=== PATIENT | male | born 1940 | race Caucasian/White ===

== ENCOUNTER 2016-11-26 16:24 | Emergency (ER) | payer MEDICARE ==
[2016-11-26 16:40] VITALS: BP 127/63
--- NOTE | 2016-11-26 17:39 | RAD ---
Indication: Fall. On aspirin. History of ITP. Assess for subdural hematoma. Comparison: August 07, 2016 Technique: Noncontrast CT vertex of skull through foramen magnum. Report: Previous small bilateral frontal craniotomies. Minimal subjacent chronic anterior dural thickening. Mild prominence of the cerebral sulci and cerebellar fissures. Proportional mild prominence of the ventricles. Unremarkable basal cisterns. Negative for wolff matter white matter obscuration, intra or extra-axial hemorrhage, or mass effect. Unremarkable orbital contents. Negative for calvarial or skull base fracture. Clear visualized paranasal sinuses and mastoid air spaces. Negative for scalp hematoma. IMPRESSION: 1. No traumatic brain injury evident. 2. No acute intracranial process evident.
--- NOTE | 2016-11-26 19:08 | ED ---
Complex/Multi-Sys Presentation - HPI Summary HPI Summary: Pt here w/ fall last night. Was transitioning from couch when he slipped and fell onto his bottom. Denies head injury or LOC - no pain or symptoms otherwise. This morning developed a nose bleed which was stopped w/ pressure - no bleeding since. reports they keep their heat at 73F. He is here today as pt has a h/o subdural hematoma s/p head injury while on coumadin. He no longer takes coumadin however takes an ASA daily. also reports he had a nose bleed prior to subdural hemtoma last time and didn't want to take any chances. Pt denies headache, neck pain, photophobia, phonophobia, tinnitus, change in vision, numbness, tingling or weakness. He does not have any new pain anywhere. reports he has issues with his memory since craniotomy for repair of subdural hematomas. 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 - History Of Current Complaint Chief Complaint: EDGeneral Time Seen by Provider: 11/26/16 17:00 Hx Obtained From: Patient, Family/Collar Runner - - Allergies/Home Medications Allergies/Adverse Reactions: Allergies Allergy/AdvReac Type Severity Reaction Status Date / Time No Known Allergies Allergy Verified 10/24/14 17:16 PMH/Surg Hx/FS Hx/Imm Hx Previously Healthy: Yes Endocrine/Hematology History: Denies: Hx Anticoagulant Therapy - takes ASA daily, Hx Blood Disorders, Hx Diabetes, Hx Thyroid Disease, Hx Unexplained Bleeding, Hx Coagulopothy Cardiovascular History: Reports: Hx Angina, Hx Hypercholesterolemia, Hx Hypertension - W/MEDS, Other Cardiovascular Problems/Disorders - A FIB - controlled and no meds at this time Denies: Hx Congestive Heart Failure, Hx Myocardial Infarction Respiratory History: Denies: Hx Asthma, Hx Chronic Obstructive Pulmonary Disease (COPD) GI History: Reports: Hx Gastroesophageal Reflux Disease Denies: Hx Ulcer History: Reports: Other Problems/Disorders - incontenent at times Denies: Hx Renal Disease Sensory History: Reports: Hx Contacts or Glasses Opthamlomology History: Reports: Hx Contacts or Glasses Neurological History: Reports: Other Neuro Impairments/Disorders - memory issues s/p craniotomy Infectious Disease History: No Infectious Disease History: Reports: Hx Clostridium Difficile - by history, History Other Infectious Disease - lyme Denies: Hx Hepatitis, Hx Human Immunodeficiency Virus (HIV), Hx of Known/ Suspected MRSA, Hx Shingles, Traveled Outside the [place] in Last 30 Days - Family History Known Family History: Positive: None - Social History Occupation: Retired Lives: With Family - of 51 years Alcohol Use: None Hx Substance Use: No Substance Use Type: Reports: None Hx Tobacco Use: No Smoking Status (MU): Never Smoked Tobacco Review of Systems Negative: Fever, Chills, Fatigue Negative: Photophobia, Blurred Vision, Diplopia Negative: Dental Pain Negative: Chest Pain Negative: Shortness Of Breath Negative: Vomiting, Nausea Positive: no symptoms reported Negative: Arthralgia, Myalgia Negative: Bruising Negative: Headache, Weakness, Paresthesia, Numbness Psychological: Normal All Other Systems Reviewed And Are Negative: Yes Physical Exam Triage Information Reviewed: Yes Vital Signs On Initial Exam: Initial Vitals Temp Pulse Resp BP Pulse Ox 97.1 F 66 20 127/63 99 11/26/16 16:31 11/26/16 16:31 11/26/16 16:31 11/26/16 16:31 11/26/16 16:31 Vital Signs Reviewed: Yes Appearance: Positive: Well-Appearing, No Pain Distress, Well-Nourished Skin: Positive: Warm, Dry - no ecchymosis observed Head/Face: Positive: Normal Head/Face Inspection Eyes: Positive: Normal, EOMI, URMILA, Conjunctiva Clear. Negative: Conjunctiva Inflammed, Discharge ENT: Positive: Normal ENT inspection, Hearing grossly normal, Pharynx normal - mucosa moist - no blood observed in pharynx, TMs normal - no hemotympanum. Negative: Nasal congestion, Nasal drainage - dried blood around exit of Rt nares - no active bleeding or obvious vascular pathology within nares Neck: Positive: Supple, Nontender Respiratory/Lung Sounds: Positive: Breath Sounds Present. Negative: Rales, Rhonchi, Wheezes Cardiovascular: Positive: Normal, RRR, S1, S2 - no a. fib appreciated Abdomen Description: Positive: Nontender, Soft Bowel Sounds: Positive: Present Musculoskeletal: Positive: Normal, Strength/ROM Intact Neurological: Positive: Normal, Sensory/Motor Intact, Alert, Oriented to Person Place, Time, CN Intact II-III Psychiatric: Positive: Normal - pleasant, recalls events Diagnostics - Vital Signs Vital Signs Temp Pulse Resp BP Pulse Ox 11/26/16 16:31 97.1 F 66 20 127/63 99 - Laboratory Lab Statement: Any lab studies that have been ordered have been reviewed, and results considered in the medical decision making process. Complex Multi-Symp Course/Dx Course Of Treatment: Discussed pt's potential for intracranial hemorrhage given his age and daily ASA use however appears to be without acute neurologic injury today. agrees to monitor him and return to ED if danger s/sx present. After learning about his home temp, suspect his epistaxis was a result of a dry home environment. She is aware of humidication in the home as well as keeping pt hydrated and may try saline nasal moisture to prevent future episodes. If they recurr and pt cannot control bleeding, return to ED. Pt and left w/o printed d/c instructions. - Diagnoses Provider Diagnoses: Fall Discharge - Discharge Plan Condition: Stable Disposition: HOME Patient Education Materials: Fall Prevention for Older Adults (ED) Referrals: Alexey Green MD [Primary Care Provider] - Additional Instructions: Your brain CT today was without acute findings of injury. Follow-up with your PCP next week if dizziness persists - call Tuesday to schedule an appointment. *If you develop worsening of symptoms sooner, return to ED
== END 2016-11-26 18:41 | disposition home or self-care (01) ==
LOC: ED 16:24
DX: Z04.3 Encounter for examination and observation following other accident (principal); Z79.82 Long term (current) use of aspirin; E78.00 Pure hypercholesterolemia, unspecified; I10 Essential (primary) hypertension; K21.9 Gastro-esophageal reflux disease without esophagitis; Z86.73 Personal history of transient ischemic attack (TIA), and cerebral infarction without residual deficits; F17.210 Nicotine dependence, cigarettes, uncomplicated; J45.909 Unspecified asthma, uncomplicated; Z88.5 Allergy status to narcotic agent
CPT/HCPCS: 70450; 99281

== ENCOUNTER 2018-01-07 14:10 | Emergency (ER) | payer MEDICARE ==
[2018-01-07 15:09] VITALS: BP 105/69
--- NOTE | 2018-01-07 16:01 | UC ---
Digna Allen Emily, scribed for Mumtaz Pang MD on 01/07/18 at 1524 . UC General HPI - HPI Summary HPI Summary: This patient is a 77 year old M presenting to urgent care accompanied by with a chief complaint of abrupt change in memory that began 1 week ago. The patient rates the pain 0/10 in severity. Symptoms aggravated by nothing. Symptoms alleviated by nothing. Patient reports nausea and brief headache. Patient denies weakness, numbness, fever, chills, vomiting, diarrhea, increased urinary frequency, dysuria, and abd pain. Family denies symptoms being similar to previous brain bleed symptoms. Pt reports ending a Keppra prescription one week ago. - History of Current Complaint Chief Complaint: UCGeneralIllness Stated Complaint: UTI Time Seen by Provider: 01/07/18 15:13 Hx Obtained From: Patient, Family/Route Inspector Onset/Duration: Sudden Onset, Lasting Days, Still Present Onset Severity: Mild Current Severity: Mild Pain Intensity: 0 Aggravating: Nothing Alleviating: Nothing Associated Signs & Symptoms: Positive: Other - Positive nausea. Negative headache, weakness, numbness, fever, chills, vomiting, diarrhea, increased urinary frequency, dysuria, and abd pain. - Allergy/Home Medications Allergies/Adverse Reactions: Allergies Allergy/AdvReac Type Severity Reaction Status Date / Time No Known Allergies Allergy Verified 01/07/18 14:51 Home Medications: Home Medications Escitalopram Oxalate [Lexapro 10 mg] 30 mg PO DAILY 01/07/18 [History Confirmed 01/07/18] Methotrexate TAB* 12.5 mg PO WEEKLY 01/07/18 [History Confirmed 01/07/18] Omeprazole CAP* [Prilosec CAP* 20 MG] 20 mg PO DAILY 01/07/18 [History Confirmed 01/07/18] PMH/Surg Hx/FS Hx/Imm Hx Previously Healthy: No Cardiovascular History: Atrial Fibrillation Neurological History: Other Other Neurological History: Subdural Hematoma Other History Of: Anticoagulant Therapy - takes ASA daily - Surgical History Surgical History: Yes Surgery Procedure, Year, and Place: Craniotomoy s/p subdural - Family History Known Family History: Positive: Cardiac Disease - Mother had [place] - Social History Occupation: Retired Lives: With Family Alcohol Use: None Substance Use Type: None Smoking Status (MU): Never Smoked Tobacco - Immunization History Most Recent Influenza Vaccination: 2012 Most Recent Tetanus Shot: unknown Most Recent Pneumonia Vaccination: 2014 Review of Systems Constitutional: Other - Negative fever and chills Gastrointestinal: Other - Negative abd pain, vomiting, and diarrhea Genitourinary: Other - Negative increased urinary frequency and dysuria Neurological: Headache, Other - Negative weakness and numbness All Other Systems Reviewed And Are Negative: Yes Physical Exam Triage Information Reviewed: Yes Vital Signs: Initial Vital Signs Temp 97.6 F 01/07/18 14:58 Pulse 74 01/07/18 14:58 Resp 18 01/07/18 14:58 BP 105/69 01/07/18 14:58 Pulse Ox 96 01/07/18 14:58 Course/Dx - Course Course Of Treatment: Medications reviewed. Allergies reviewed. NO FOCAL NEUROLOGIC DEFICIT. NO STORM. RECALLS MEMORIES FROM THE DISTANT PAS BUT, CANNOT REMEMBER IF HE HAD BREAKFAST THIS MORNING. DISCUSSED WITH DR MANCIA, NEUROLOGY. STROKE UNLIKELY WITH SHORT TERM MEMORY LOSS THE ONLY SX. HIS DOES NOT BELIEVE THIS IS A STROKE; HE BEHAVIOR WITH HIS STROKES WAS DIFFERENT. PATIENT/ WISH TO HAVE BLOOD WORK DONE AND PMD F/U. THEY WILL GO TO THE EMERGENCY DEPARTMENT IF THERE IS ANY WORSENING OF HIS CONDITION. - Differential Dx - Multi-Symptom Provider Diagnoses: SHORT TERM MEMORY LOSS - Physician Notifications Discussed Patient Care With: Lisa Mancia Time Discussed With Above Provider: 15:35 Instructed by Provider To: Other - Consult with Dr. Mancia (neurology) at 1535. She mentioned it is extremely unlikely to be a stroke just based on the short term memory. Discharge - Discharge Plan Condition: Stable Disposition: HOME Referrals: Alexey Green MD [Primary Care Provider] - Additional Instructions: FOLLOW UP WITH DOCTOR GREEN ON 01/09/18, FOR YOUR SHORT TERM MEMORY LOSS. GO TO THE EMERGENCY DEPARTMENT FOR ANY WORSENING OF YOUR CONDITION OR QUESTIONS OR CONCERNS. The documentation as recorded by the Digna macias Emily accurately reflects the service I personally performed and the decisions made by me, Mumtaz Pang MD.
[2018-01-08 14:30] LABS: ABS Basophils 0 10^3/ul (0-0.2); ABS Eosinophils 0.3 10^3/ul (0-0.6); ABS Lymphocytes 0.6 10^3/ul (1.0-4.8); ABS Monocytes 0.4 10^3/ul (0-0.8); ABS Neutrophils 8.7 10^3/ul (1.5-7.7); ABS Nucleated RBC 0 10^3/ul; Eosinophil % 2.8 % (0-6); Hematocrit 44 % (42-52); Hemoglobin 14.8 g/dl (14.0-18.0); Lymphocyte % 5.7 % (25-47); Mean Corpuscular HGB Conc 34 g/dl (31-36); Mean Corpuscular Hemoglobin 35 pg (27-31); Mean Corpuscular Volume 102 fL (80-94); Mean Platelet Volume 10 um3 (7.4-10.4); Nucleated Red Blood Cells % 0.1; Platelet Count 135 10^3/ul (150-450); Red Blood Count 4.27 10^6/ul (4.0-5.4); Red Cell Distribution Width 15 % (10.5-15); White Blood Count 10.1 10^3/ul (3.5-10.8)
[2018-01-08 14:34] LABS: INR 0.94 (0.77-1.02)
[2018-01-08 14:39] LABS: EGFR Non-African American 59.9 (>60)
--- NOTE | 2018-01-08 21:25 | UC ---
- Progress Note Progress Note: Pt's labwork returned today - unremarkable. Has f/u with his PCP tomorrow - needs to keep this appt for further investigation of his memory issues. Course/Dx - Provider Notifications Time Discussed With Above Provider: 15:35 Instructed by Provider To: Other - Consult with Dr. Toscano (neurology) at [phone]. She mentioned it is extremely unlikely to be a stroke just based on the short term memory.
== END 2018-01-07 16:20 | disposition home or self-care (01) ==
LOC: UCEAST 14:10
DX: R41.3 Other amnesia (principal); R11.0 Nausea; R51 Headache; I48.91 Unspecified atrial fibrillation; Z79.82 Long term (current) use of aspirin
CPT/HCPCS: 36415; 80053; 81003; 85025; 85610; 86140; 99211; G0463

== ENCOUNTER 2018-04-20 22:22 | Emergency (ER) | payer MEDICARE ==
[2018-04-20] MEDS ORDERED: Morphine VIAL* 4 MG/ML VIAL (1 ml vial) IV ONE (22:54)
[2018-04-20] MEDS ORDERED: Ondansetron INJ* 2 MG/ML VIAL IV ONE (22:54)
[2018-04-20] MEDS ORDERED: NS 0.9% 1000 ML* 1,000 ML IV ONE (22:54)
[2018-04-20 23:41] LABS: ABS Basophils 0 10^3/ul (0-0.2); ABS Eosinophils 0.2 10^3/ul (0-0.6); ABS Lymphocytes 0.9 10^3/ul (1.0-4.8); ABS Monocytes 0.8 10^3/ul (0-0.8); ABS Neutrophils 8.1 10^3/ul (1.5-7.7); ABS Nucleated RBC 0 10^3/ul; Eosinophil % 2.2 % (0-6); Hematocrit 43 % (42-52); Hemoglobin 14.8 g/dl (14.0-18.0); Lymphocyte % 8.8 % (25-47); Mean Corpuscular HGB Conc 34 g/dl (31-36); Mean Corpuscular Hemoglobin 35 pg (27-31); Mean Corpuscular Volume 101 fL (80-94); Mean Platelet Volume 9.7 um3 (7.4-10.4); Nucleated Red Blood Cells % 0.1; Platelet Count 119 10^3/ul (150-450); Red Blood Count 4.28 10^6/ul (4.0-5.4); Red Cell Distribution Width 15 % (10.5-15)
[2018-04-20 23:44] LABS: INR 0.94 (0.77-1.02)
[2018-04-20 23:51] LABS: EGFR Non-African American 55.5 (>60)
[2018-04-21] MEDS ORDERED: Iodixanol* (CONTRAST) 320 MG/ML 100 ML SDV IV ONE (00:05)
[2018-04-21] MEDS ORDERED: Morphine VIAL* 4 MG/ML VIAL (1 ml vial) IV ONE ×2 (00:51→00:52)
--- NOTE | 2018-04-21 01:25 | ED ---
Dejon Allen Angela, scribed for Marin Alcazar MD on 04/20/18 at 2321 . Adult Trauma - HPI Summary HPI Summary: This pt is a 77 y/o male presenting to [facility] c/o right sided rib pain s/p fall today. Pt reports he fell today at 15:00 and landed on a coffee table hitting the right side of his ribs and the posterior aspect of his head. Denies LOC. He states he has painful respirations. Denies abd pain, nausea, vomiting, SOB, blood loss. Pt has hx of subdural hematoma x2. - History of Current Complaint Chief Complaint: EDGeneral Stated Complaint: fall Time Seen by Provider: 04/20/18 22:44 Hx Obtained From: Family/Surg Nurse Mechanism of Injury: Fall Ambulatory at the Scene: Yes Loss of Consciousness: no loss of consciousness Onset of Pain: Immediate, Hours Current Severity: Severe Pain Intensity: 8 Pain Scale Used: 0-10 Numeric Aggravating Factor(s): Palpation Alleviating Factor(s): Rest Associated Signs & Symptoms: Positive: Painful Respirations. Negative: SOB, Abdominal Pain, Fever, Nausea/Vomiting, Loss of Consciousness, Significant Blood Loss - Allergy/Home Medications Allergies/Adverse Reactions: Allergies Allergy/AdvReac Type Severity Reaction Status Date / Time No Known Allergies Allergy Verified 02/06/18 15:46 Home Medications: Home Medications ALPRAZolam TAB* [Xanax TAB*] 0.125 - 0.25 mg PO TID PRN 04/20/18 [History Confirmed 04/20/18] Aspirin EC TAB* [Ecotrin EC Low Dose 81 MG*] 81 mg PO DAILY 04/20/18 [History Confirmed 04/20/18] Donepezil TAB* [Aricept 5 MG TAB*] 5 mg PO DAILY 04/20/18 [History Confirmed 05/31] Escitalopram (NF) [Lexapro 10 mg (NF)] 10 mg PO DAILY 04/20/18 [History Confirmed 04/20/18] Folic Acid TAB* [Folvite TAB*] 1 mg PO DAILY 04/20/18 [History Confirmed ] L.acidoph,Paracasei, B.lactis [Probiotic] 1 each PO DAILY 04/20/18 [History Confirmed 04/20/18] Methotrexate TAB* 12.5 mg PO WEEKLY 04/20/18 [History Confirmed 04/20/18] Metoprolol Tartrate TAB* [Lopressor TAB*] 12.5 mg PO BID 04/20/18 [History Confirmed 04/20/18] Omeprazole CAP* [Prilosec CAP* 20 MG] 20 mg PO DAILY 04/20/18 [History Confirmed 04/20/18] Sertraline* [Zoloft*] 50 mg PO DAILY 04/20/18 [History Confirmed 04/20/18] Simvastatin (NF) [Zocor (NF)] 40 mg PO BEDTIME 04/20/18 [History Confirmed 04/20] predniSONE TAB* [Deltasone TAB*] 5 mg PO DAILY 04/20/18 [History Confirmed 04/20] PMH/Surg Hx/FS Hx/Imm Hx Endocrine/Hematology History: Reports: Hx Anticoagulant Therapy - takes ASA daily Denies: Hx Blood Disorders, Hx Diabetes, Hx Thyroid Disease, Hx Unexplained Bleeding Cardiovascular History: Reports: Hx Angina, Hx Hypercholesterolemia, Hx Hypertension - W/MEDS, Other Cardiovascular Problems/Disorders - A FIB - controlled and no meds at this time Denies: Hx Congestive Heart Failure, Hx Myocardial Infarction, Hx Pacemaker/ ICD Respiratory History: Denies: Hx Asthma, Hx Chronic Obstructive Pulmonary Disease (COPD) GI History: Reports: Hx Gastroesophageal Reflux Disease Denies: Hx Ulcer History: Reports: Other Problems/Disorders - incontenent at times Denies: Hx Renal Disease Sensory History: Reports: Hx Contacts or Glasses, Hx Hearing Aid Opthamlomology History: Reports: Hx Contacts or Glasses Neurological History: Reports: Other Neuro Impairments/Disorders - memory issues s/p craniotomy; Subdural hematoma Psychiatric History: Reports: Hx Panic Disorder - ANXIETY - Surgical History Surgery Procedure, Year, and Place: Craniotomoy s/p subdural x2. LEFT ARM WITH METAL. TONSILS Infectious Disease History: No Infectious Disease History: Reports: Hx Clostridium Difficile - by history, Hx Shingles, History Other Infectious Disease - lyme Denies: Hx Hepatitis, Hx Human Immunodeficiency Virus (HIV), Hx of Known/ Suspected MRSA, Traveled Outside the [place] in Last 30 Days - Family History Known Family History: Positive: Cardiac Disease - Mother had CT - Social History Alcohol Use: None Hx Substance Use: No Substance Use Type: Reports: None Hx Tobacco Use: No Smoking Status (MU): Never Smoked Tobacco Review of Systems Negative: Fever, Chills Negative: Abdominal Pain Musculoskeletal: Other - right sided rib pain All Other Systems Reviewed And Are Negative: Yes Physical Exam - Summary Physical Exam Summary: VITAL SIGNS: Reviewed. GENERAL: Patient is a well-developed and nourished male who is lying comfortable in the stretcher. Patient is not in any acute respiratory distress. HEAD AND FACE: No sinus tenderness. EYES: PERRLA, EOMI x 2, No injected conjunctiva, no nystagmus. EARS: Hearing grossly intact. Ear canals and tympanic membranes are within normal limits. MOUTH: Oropharynx within normal limits. NECK: Supple, trachea is midline, no adenopathy, no JVD, no carotid bruit, no c- spine tenderness, neck with full ROM. CHEST: Symmetric, tenderness over the right chest wall LUNGS: Clear to auscultation bilaterally. No wheezing or crackles. CVS: Regular rate and rhythm, S1 and S2 present, no murmurs or gallops appreciated. ABDOMEN: Soft. Right upper quadrant tenderness. No signs of distention. No rebound no guarding, and no masses palpated. Bowel sounds are normal. EXTREMITIES: FROM in all major joints, no edema, no cyanosis or clubbing. NEURO: Alert and oriented x 3. No acute neurological deficits. Speech is normal and follows commands. SKIN: Dry and warm Triage Information Reviewed: Yes Vital Signs On Initial Exam: Initial Vitals Temp Pulse Resp BP Pulse Ox 97.9 F 53 18 125/71 99 04/20/18 22:26 04/20/18 22:26 04/20/18 22:26 04/20/18 22:26 04/20/18 22:26 Vital Signs Reviewed: Yes Diagnostics - Vital Signs Vital Signs Temp Pulse Resp BP Pulse Ox 04/20/18 22:26 97.9 F 53 18 125/71 99 - Laboratory Result Diagrams: 04/20/18 23:06 04/20/18 23:06 Lab Statement: Any lab studies that have been ordered have been reviewed, and results considered in the medical decision making process. - CT Brain CT CT Interpretation: No Acute Changes - IMPRESSION: Previous craniotomy. Dr. Alcazar has reviewed this radiology report. CT Interpretation Completed By: Radiologist Chest/Abd/Pelvis CT CT Interpretation: Positive (See Comments) - IMPRESSION: There is a minimally displaced fracture of the right lateral eighth rib. Dr. Alcazar has reviewed this radiology report. CT Interpretation Completed By: Radiologist Adult Trauma Course/Dx - Course Assessment/Plan: Pt is a 77 y/o male who presents with right sided rib pain s/p fall today. Pt reports he fell today at 15:00 and landed on a coffee table hitting the right side of his ribs and the posterior aspect of his head. Denies LOC. He states he has painful respirations. Denies abd pain, nausea, vomiting, SOB, blood loss. Brain CT is negative. CT chest/abd/pelvis shows there is a minimally displaced fracture of the right lateral eighth rib. In the ED course the pt was given IV fluids, zofran, morphine. Pt will be discharged home with follow up from PCP. He will be given a prescription for Percocet. Pt was instructed to return to the ED for any worsening symptoms. - Diagnoses Provider Diagnoses: Fracture of eight ribs of right side Discharge - Sign-Out/Discharge Documenting (check all that apply): Discharge/Admit/Transfer - Discharge - Discharge Plan Condition: Stable Disposition: HOME Prescriptions: oxyCODONE/Acetamin 5/325 MG* [Percocet 5/325 TAB*] 1 tab PO Q6H PRN #20 tab MDD 4 PRN Reason: Pain Patient Education Materials: Rib Fracture (ED) Referrals: Alexey Green MD [Primary Care Provider] - 3 Days Additional Instructions: Please follow up with your primary care provider. RETURN TO EMERGENCY DEPARTMENT FOR ANY NEW OR WORSENING SYMPTOMS. The documentation as recorded by the Dejon macias Angela accurately reflects the service I personally performed and the decisions made by , Marin Alcazar MD.
[2018-04-21 02:07] VITALS: BP 109/63
--- NOTE | 2018-04-21 07:47 | RAD ---
HISTORY: fall, head trauma COMPARISONS: January 16, 2018 TECHNIQUE: Multiple contiguous axial CT scans were obtained of the head without intravenous contrast. FINDINGS: HEMORRHAGE/INFARCT: There is no hemorrhage or acute infarct. MASSES/SHIFT: There is no mass or shift. EXTRA-AXIAL SPACES: There are no extra-axial fluid collections. SULCI AND VENTRICLES: There is diffuse and proportional enlargement of the sulci and ventricles. CEREBRUM: There is mild hypoattenuation of the periventricular and subcortical white matter. BRAINSTEM: There are no focal parenchymal abnormalities. CEREBELLUM: There are no focal parenchymal abnormalities. VESSELS: There is calcification of the cavernous segments of the internal carotid arteries bilaterally and of the distal vertebral arteries bilaterally. PARANASAL SINUSES: The paranasal sinuses are clear. ORBITS: The orbits are unremarkable. BONES AND SOFT TISSUE: There is postsurgical change to the frontal skull bilaterally. OTHER: None IMPRESSION: NO ACUTE INTRACRANIAL PATHOLOGY.
--- NOTE | 2018-04-21 08:02 | RAD ---
INDICATION: Trauma, right lateral chest pain. COMPARISON: Comparison is made with a prior CT of the chest, abdomen and pelvis from October 22, [address] of the chest from September 27, 2016. TECHNIQUE: A CT scan of the chest, abdomen and pelvis was performed with intravenous and without oral contrast following intravenous injection of 100 ml of Visipaque 320 nonionic contrast. Contiguous axial sections were obtained from the lung apices through the symphysis pubis. Images were reconstructed in the coronal and sagittal planes. FINDINGS: The interstitial markings are increased and most prominent in the peripheral portions of both lungs with mild honeycombing present most consistent with chronic interstitial lung disease. There appears to be slight progression from the prior study. No pleural effusion or pneumothorax is present. The heart is mildly enlarged. There are coronary artery calcifications present. No pericardial effusion is seen. The thoracic aorta is normal in caliber and demonstrates homogeneous contrast opacification. No significant enlarged mediastinal or hilar lymph nodes are seen. The liver and spleen are normal in size without significant focal abnormality. No calcified gallstones are seen. There are few scattered pancreatic calcifications suggestive of chronic pancreatitis. The kidneys and adrenal glands are normal in size. There is no evidence for hydronephrosis. There are several bilateral renal cysts. The largest cyst is noted in the lower pole of the left kidney measuring 5.3 x 3.0 cm in size. No hydronephrosis is present. The abdominal aorta is ectatic. There is mild calcific plaque present. 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 No significant enlarged retroperitoneal lymph nodes are seen. There is a small hiatal hernia. The stomach, small and large bowel appear nondistended. There is a small periumbilical hernia containing fat. In addition there is a right inguinal hernia containing the cecum and appendix which has increased in size from the prior exam. No wall thickening is present. No free intraperitoneal air or fluid is seen. There is a slightly displaced fracture of the right lateral eighth rib and nondisplaced fractures of the seventh and ninth right lateral ribs. IMPRESSION: 1. FRACTURES OF THE RIGHT SEVENTH THROUGH NINTH LATERAL RIBS DESCRIBED. 2. RIGHT INGUINAL HERNIA CONTAINING THE CECUM AND APPENDIX INCREASED IN SIZE FROM THE PRIOR STUDY. 3. 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 4. FINDINGS CONSISTENT WITH CHRONIC INTERSTITIAL LUNG DISEASE.
== END 2018-04-21 02:08 | disposition home or self-care (01) ==
LOC: ED 22:22
DX: S22.41XA Multiple fractures of ribs, right side, initial encounter for closed fracture (principal); W19.XXXA Unspecified fall, initial encounter; Y92.9 Unspecified place or not applicable; I10 Essential (primary) hypertension; I72.3 Aneurysm of iliac artery; K40.90 Unilateral inguinal hernia, without obstruction or gangrene, not specified as recurrent; Z79.82 Long term (current) use of aspirin; Z79.899 Other long term (current) drug therapy
CPT/HCPCS: 36415; 70450; 71260; 74177; 80053; 82150; 83605; 83690; 85025; 85610; 85730; 86850; 86900; 86901; 99283; J2270; Q9967